=== PATIENT | female | born 1935 | race Caucasian/White ===

== ENCOUNTER 2025-04-28 15:08 | Emergency (ER) | payer OTHER, SELFPAY ==
[2025-04-28 15:13] VITALS: BP 127/87
[2025-04-28 17:17] LABS: Hematocrit 36.1 % (37.0-47.0); Hemoglobin 12.0 g/dL (12.0-16.0); Mean Corp Hgb Conc. 33.2 g/dL (33.0-37.0); Mean Corpuscular Volume 91.2 fL (81.0-99.0); Nucleated Red Blood Cells % 0 %; Platelet Count 195 10^3/uL (130-400); Red Cell Dist. Width 15.0 % (11.5-14.5)
[2025-04-28 17:40] LABS: COVID-19 Antigen Negative (Negative)
[2025-04-28 17:44] LABS: ALT (SGPT) 12 U/L (0-35); AST (SGOT) 22 U/L (14-36); Albumin 4.0 g/dl (3.5-5.0); Alkaline Phosphatase 89 U/L (38-126); Blood Urea Nitrogen 31 mg/dl (7-17); Calcium 9.3 mg/dl (8.4-10.2); Carbon Dioxide 26 mmol/L (22-30); Chloride 105 mmol/L (98-107); Glucose 103 mg/dl (70-99); Potassium 4.6 mmol/L (3.5-5.1); Sodium 141 mmol/L (135-145); Total Protein 6.5 g/dl (6.3-8.2); eGFR 28.84
[2025-04-28 18:24] VITALS: BP 116/94
[2025-04-28] MEDS: NSS 500 IV (18:48)
[2025-04-28 19:34] VITALS: BP 129/93
--- NOTE | 2025-04-28 21:21 | ED.GENMED ---
History of Present Illness
General
Chief Complaint: Social Service Referral
Source: patient
Exam Limitations: none
Time Seen by Provider: 04/28/25 15:51
Nursing documentation reviewed up to this point in time: agreed with except (as according to HPI)
History of Present Illness
History of Present Illness:
Patient is an 89-year-old female with history of hypertension, hyperlipidemia, dementia who presents the emergency department via EMS with family for concerns of possible change in mental status earlier today. Patients daughter states that she moved
her mother home today from the memory care unit where she has been living for many years. After lunch patient appaently had a brief episode where her left hand was shaking and she seemed less responsive. Patients daughter witnessed this event and
states it lasted a few minutes at most. There was no obvious tonic/clonic nature to movement. No had strike or injuries. Patient remained alert for the duration of the even however seemed 'less responsive' and 'staring'.
No known recent fever or viral symptoms.
Patient asymptomatic without any complaints
Patients daughter reports that she hasn't had the chance to see her mom very frequently over the years and is unsure if this is typical behavior therefore called 911 for transport to ED for further evaluation.
Review of Systems
Review of Systems
Allergies reviewed?: Yes
All Other Systems: ROS reviewed and negative except as documented in HPI and ROS
Phy Exam
Physical Exam
Physical Exam:
Vitals: Patient's vital signs are stable
General: Patient is frail. In no distress
Skin: Warm and dry, no rashes or lesions
Head: Normocephalic, atraumatic
Eyes: Sclera nonicteric. EOMs intact. No nystagmus.
Throat: Protecting airway
Neck: Normal ROM, no cervical spine tenderness, no meningismus
Cardiac: Regular rate and rhythm, no murmurs.
Pulm: Normal respiratory effort, no wheezes, rales, rhonchi heard on exam
.
Abdomen: Abdomen soft and nontender
Extremities: No evidence of cyanosis or edema. Strength 5/5 in bilateral upper and lower extremities. Sensation intact
Neuro: AAOx1 to person, not place or time (baseline). No facial droop or asymmetry. Follows commands. Moving all extremities.
Psychiatric: Normal affect.
Course
Orders/Labs/Results
Orders:
Orders
04/28/25 16:18
CT Head W/o Iv Contrast Urgent
Comment:
Reason For Exam: Left arm tremor, possible LOC
04/28/25 17:07
COVID-19 Antigen Urgent
Source: Nasal Swab
Complete Blood Count/With Diff Urgent
Comprehensive Metabolic Panel Urgent
Influenza A+B Rapid Molecular Urgent
YIN Source: Nasal Swab
Specimen Description:
04/28/25 18:42
0.9% Sodium Chloride 500 ml [Nss] 500 ml IV BOLUS
Abnormal Lab Results
04/28/25
17:07
RBC 3.96 L 10^6/uL
(4.20-5.40)
Hct 36.1 L %
(37.0-47.0)
RDW 15.0 H %
(11.5-14.5)
MPV 11.8 H fL
(7.4-10.4)
Absolute Neuts (auto) 7.4 H 10^3/uL
(1.4-6.5)
Absolute Lymphs (auto) 1.1 L 10^3/uL
(1.2-3.4)
Neutrophils % 81.7 H %
(42.2-75.2)
Lymphocytes % 12.2 L %
(20.5-51.1)
BUN 31 H mg/dl
(7-17)
Creatinine 1.7 H mg/dL
(0.6-1.0)
Glucose 103 H mg/dl
(70-99)
04/28/25 17:07
04/28/25 17:07
Vital Signs
Initial and Last Documented VS:
Initial Vital Signs
Temp Pulse Resp BP Pulse Ox
96.5 F L 82 18 127/87 99
04/28/25 15:13 04/28/25 15:13 04/28/25 15:13 04/28/25 15:13 04/28/25 15:13
Last Documented Vital Signs
Temp Pulse Resp BP Pulse Ox
98.5 F 93 17 129/93 95
04/28/25 18:24 04/28/25 19:34 04/28/25 19:34 04/28/25 19:34 04/28/25 21:22
MDM/Problems Addressed
Differential Diagnosis Includes:
Not limited to: progression of disease, electrolyte abnormality, intracranial mass/ bleed, seizure, viral illness, etc
MDM/Problems Addressed:
89-year-old female presenting alongside daughter with concern of change in mental status and episode of left hand shaking earlier today. No history of recent trauma. Patient brought home from memory care unit today, daughter is not truly sure if
these symptoms reflect her baseline function as she has been living in a memory care facility for many years.
Vitals acceptable. Physical exam as above. She is alert and oriented x 1 which is believed to be baseline. She is moving all extremities and has no focal weakness or deficits. No facial droop or asymmetry.
Differential broad. Will check labs and CT head. Will give IV fluids and reassess.
Update: labs reveal mild renal insufficiency, no prior labs for comparison. Her daughter believes she has a history of kidney dysfunction. CT head without acute findings. Patient has remained stable and in no distress in emergency department. Her
daughter did report a brief episode of staring (which I did not witness).
Unclear if these symptoms could be reflecting seizure activity although feel this is less likely (she has no hx of this). Discussed Ceribell with pts daughter, however she declines. No evidence of acute mental status change here. Do not suspect CVA.
I did attempt to collect a urine however patient was unable to provide sample and daughter does not want us to catheterize. She is aware we could be missing a urinary tract infection.
Ultimately � work up in ED negative for acute findings. Unclear etiology of symptoms today. Offered admission for further monitoring, however patient�s daughter feels comfortable taking her home and will closely monitor. Strict return precautions
discussed.
Chronic conditions affecting care:
Dementia
Acute Exacerbation and/or Progression of Chronic Illness:
N/A
*Radiology
Radiology exam reviewed: radiology read reviewed
*Pulse Oximetry
SaO2: 95
Oxygen Mode of Delivery: Room air
Patient hypoxic: no
*EKG
Interpreted by ED Provider?: NA
*Kraft Digester Operator Interpretation
Rate: Kraft Digester Operator- N/A
*Critical Care Note
Total Time (30-74mins, 75-104mins- exclusive of procedures): Not Applicable
ED Attending Note
-
Portions of this chart may have been created with voice recognition software.� Occasional wrong word or��sound alike� substitutions may have occurred due to the inherent limitations of voice recognition software.
Discharge Plan
Departure
Patient Disposition: Home (Routine Discharge)
Date of Disposition: 04/28/25
Time of Disposition: 19:59
Patient with high blood pressure during this ER visit?: Yes
Discharge Problem:
Change in mental state
Instructions: Dementia (including Alzheimer disease), Acute kidney injury, BLOOD PRESSURE
Referrals:
Alejandra Malcolm MD [Non-Admitting Privileges, Neurology]
UNKNOWN - PT DOES,NOT KNOW [Family Provider]
Activity Restrictions/Additional Instructions:
RETURN TO THE EMERGENCY DEPARTMENT ANY CHANGE IN MENTAL STATUS, FEVER, SIGNS OF SEVERE DEHYDRATION INCLUDING LACK OF URINE PRODUCTION, SAFETY CONCERNS, WORSENING IN CURRENT SYMPTOMS, OR ANY OTHER CONCERNS
-We are unsure of the exact cause of the mental status changes today. This may be progression of Alzheimer's.
- As discussed�the head CT showed no acute intracranial abnormalities today. Lab work revealed mild renal insufficiency. We are unsure if this may be her baseline. Please ensure that these labs are repeated with your primary care in 1 to 2 weeks
to ensure they normalize. Please stay well-hydrated.
- Continue to take all medications as prescribed.
- Follow-up with primary care for further evaluation/management to ensure that symptoms are improving. If mental status changes persist you may require further workup with neurology.
Monitor symptoms closely and return to the emergency department for any acute worsening/new symptoms or any other concerns
Interventions
Interventions:
*Risk Screen - Suicide Last Done: 04/28/25 15:28
*General Assessment Last Done: 04/28/25 15:28
*Neglect/Abuse Screening Last Done: 04/28/25 15:28
*ED- Fall Risk Assessment Last Done: 04/28/25 15:28
*ED COVID-19 Vaccine History Last Done: 04/28/25 15:28
*ED Influenza Vaccine History Last Done: 04/28/25 15:28
*Nursing Disposition Last Done: 04/28/25 20:07
ED-Psychological Assessment Last Done: 04/28/25 15:30
Discharge Date and Time
Discharge Date/Time: 04/28/25 20:09
Print Language: CZECH
== END 2025-04-28 20:09 | disposition home or self-care (01) ==
LOC: EMR 15:08
PROVIDERS: Physician Assistant; EMERGENCY PHYSICIAN Emergency Medicine
DX: R41.82 Altered mental status, unspecified (principal); F03.90 Unspecified dementia, unspecified severity, without behavioral disturbance, psychotic disturbance, mood disturbance, and anxiety; E78.5 Hyperlipidemia, unspecified; I10 Essential (primary) hypertension; Z11.52 Encounter for screening for COVID-19
CPT/HCPCS: 96360; 99284; 70450; 80053; 85025; 87502; 87811